=== PATIENT | female | born 1960 | race Caucasian/White ===

== ENCOUNTER 2023-02-20 08:53 | Emergency (ER) | payer OTHER, SELFPAY ==
[2023-02-20 09:07] VITALS: BP 101/75; PULSE 87; RESP 16; TEMP 36.8; O2SAT 100
--- NOTE | 2023-02-20 09:34 | ED.SKABFB ---
HPI - Skin/Abscess/Foreign Bdy General Chief complaint: Skin/Abscess/Foreign Body Stated complaint: Rash Time Seen by Provider: 02/20/23 09:25 Source: patient and RN notes reviewed Mode of arrival: ambulatory Limitations: no limitations History of Present Illness HPI narrative: Patient presents today complaining of a rash to the left flank and left lower quadrant since last night. She has had a tingling sensation in this area for the past 2-3 days prior to the rash forming. No [id number] treatment prior to arrival. No history of shingles. She has not received the shingles vaccine. Related Data Home Medications Medication Instructions Recorded Confirmed mirabegron 50 mg tablet,extended 50 mg PO DAILY 02/20/23 02/20/23 release 24 hr (Myrbetriq) Allergies Allergy/AdvReac Type Severity Reaction Status Date / Time PREDNISONE 20MG Allergy Other Uncoded 02/20/23 09:29 Review of Systems Review of Systems: CONSTITUTIONAL: Denies body aches, fever, chills, or sweats. EYES: Denies visual changes, redness, or discharge. ENT: Denies rhinorrhea, congestion, sore throat, or otalgia. CARDIOVASCULAR: Denies chest pain, palpitations, or edema. RESPIRATORY: Denies cough or dyspnea. GASTROINTESTINAL: Denies abdominal pain, nausea, vomiting, or diarrhea. GENITOURINARY: Denies dysuria or hematuria. SKIN: + rash. MUSCULOSKELETAL: Denies back pain, joint pain, or myalgia. NEUROLOGIC: Denies headache, numbness, tingling, or weakness. PSYCH: Denies depression or anxiety. [facility] Past Medical History Medical History (Updated 02/20/23 @ 09:37 by Agnieszka Cross, [facility], ) Overactive bladder Comments At time of signature, I have reviewed and agree with nursing past medical, surgical, social and family history unless otherwise noted. Please see nursing chart for further information. There is no relevant family history pertinent to the presenting complaint Exam Narrative: GENERAL: Well-appearing, well-nourished, and in no acute distress. HEAD: Normocephalic, atraumatic. EYES: EOMI. No redness or drainage. Conjunctivae normal. ENT: Mucous membranes pink and moist. NECK: Normal AROM. CHEST: No respiratory distress. EXTREMITIES: Normal range of motion. No edema. SKIN: Warm, dry. Capillary refill normal. Normal skin turgor. Cluster of erythematous vesicles to the left flank and left lower quadrant, consistent with shingles. NEURO: No focal deficits. Alert and oriented x3. Gait steady. PSYCH: Normal affect. No signs of depression or anxiety. Course Course Level of Care: Express Care Visit Vital Signs Vital signs: Vital Signs Temperature 98.3 F 02/20/23 09:07 Pulse Rate 87 02/20/23 09:07 Respiratory Rate 16 02/20/23 09:07 Blood Pressure 101/75 02/20/23 09:07 Pulse Oximetry 100 02/20/23 09:07 Oxygen Delivery Room Air 02/20/23 09:07 Temperature 98.3 F 02/20/23 09:07 Pulse Rate 87 02/20/23 09:07 Respiratory Rate 16 02/20/23 09:07 Blood Pressure 101/75 02/20/23 09:07 Pulse Oximetry 100 02/20/23 09:07 Oxygen Delivery Room Air 02/20/23 09:07 Reviewed MDM - Skin/Abscess/Foreign Bdy MDM Narrative Medical decision making narrative: Exam is consistent with shingles. Prescription for valacyclovir sent to pharmacy. Anticipatory guidance given. Differential Diagnosis Differential diagnosis: Likely viral exanthem, urticaria, herpes zoster, cellulitis and contact dermatitis Critical Care Time Critical Care Time Critical Care Time: No Discharge Plan Discharge Clinical Impression: Herpes zoster Qualifiers: Herpes zoster complications: without complications Qualified Code(s): B02.9 - Zoster without complications Patient Disposition: Home, Self-Care Condition: Stable Instructions: Shingles (ED) Additional Instructions: Please take the valacyclovir as prescribed. Take Tylenol or ibuprofen for pain. Follow-up with your PCP in 1 week if symptoms
== END 2023-02-20 09:48 | disposition home or self-care (01) ==
PROVIDERS: Emergency Provider Nurse Practitioner
DX: B02.9 Zoster without complications (principal)
CPT/HCPCS: 99213; G0463